=== PATIENT | male | born 1975 | race Caucasian/White ===

== ENCOUNTER 2023-01-24 02:24 | Emergency (ER) | payer BC ==
[2023-01-24] MEDS ORDERED: Oxymetazoline 0.05% Nasal Spray 30 ML Bottle NAS ONE (03:03)
== END 2023-01-24 04:38 | disposition home or self-care (01) ==
LOC: JD.ED 02:24
DX: R04.0 Epistaxis (principal); K12.2 Cellulitis and abscess of mouth; Z88.0 Allergy status to penicillin
CPT/HCPCS: 30901; 99283; A9270; C9046